=== PATIENT | male | born 1980 | race African-American/Black ===

== ENCOUNTER 2024-01-20 16:52 | Emergency (ER) | payer OTHER ==
[~2024-01-20] VITALS: Ht 182.9 cm; Wt 88.2 kg
[2024-01-20 17:04] VITALS: TEMP 98.5
[2024-01-20] MEDS ORDERED: ANUSOL HC CREAM30 GM TP (18:40)
[2024-01-20 18:46] VITALS: BP 127/94; PULSE 74
== END 2024-01-20 18:46 | disposition home or self-care (01) ==
LOC: COL.ER 16:52
DX: K64.9 Unspecified hemorrhoids (principal)